=== PATIENT | male | born 1980 | race Caucasian/White ===

== ENCOUNTER 2016-07-21 04:37 | Emergency (ER) | payer MEDICAID ==
[2016-07-21 05:00] VITALS: RESP 18; O2SAT 98
--- NOTE | 2016-07-21 06:10 | C.PDOC ---
History Of Present Illness 36 year old male presents to the ED with complaints of pain in the left lower rib cage area for the past four days after accidentally being kicked while play fighting with friends. Patient notes pain is worse upon movement. He denies any other trauma or other complaints at this time. Time Seen by Provider: 07/21/16 05:26 Chief Complaint (Nursing): Back Pain History Per: Patient History/Exam Limitations: no limitations Onset/Duration Of Symptoms: Days Current Symptoms Are (Timing): Still Present Quality Of Discomfort: "Pain" Exacerbating Factor(s): Movement Past Medical History Reviewed: Historical Data, Nursing Documentation, Vital Signs Vital Signs: Last Vital Signs Temp 98.3 F 07/21/16 04:57 Pulse 100 H 07/21/16 04:57 Resp 18 07/21/16 04:57 BP 121/89 07/21/16 04:57 Pulse Ox 98 07/21/16 06:14 - Medical History PMH: Asthma - [facility] Procedures APPLICATION OF SPLINT (10/20/12) Family History: States: No Known Family Hx - Social History Hx Tobacco Use: Yes ("sometimes") Hx Alcohol Use: No Hx Substance Use: No - Immunization History Hx Tetanus Toxoid Vaccination: No Hx Influenza Vaccination: No Hx Pneumococcal Vaccination: No Review Of Systems Constitutional: Negative for: Fever, Chills, Sweats Cardiovascular: Negative for: Chest Pain Respiratory: Negative for: Shortness of Breath Gastrointestinal: Negative for: Nausea, Vomiting Musculoskeletal: Positive for: Other (left lower rib cage pain ) Physical Exam - Physical Exam Appears: Non-toxic, No Acute Distress Skin: Warm, Dry Head: Atraumatic Eye(s): bilateral: Normal Inspection, PERRL Neck: Normal ROM, Supple Chest: Symmetrical, No Deformity, Tenderness (left lower intercostal area at midaxillary line ) Cardiovascular: Rhythm Regular Respiratory: Normal Breath Sounds, No Rhonchi Gastrointestinal/Abdominal: Soft, No Distention, No Guarding, No Rebound, Other Back: No CVA Tenderness, No Vertebral Tenderness (no tenderness at thoracic or lumbar spine) Extremity: Normal ROM, No Tenderness Neurological/Psych: Oriented x3 ED Course And Treatment O2 Sat by Pulse Oximetry: 98 (room air ) - Other Rad Rib X-Ray X-Ray: Interpreted by Me, Read By Radiologist Interpretation: No fractures, no pneumothorax Progress Note: Patient was given toradol. Disposition Counseled Patient/Family Regarding: Diagnosis, Need For Followup - Disposition Disposition: HOME/ ROUTINE Disposition Time: 06:57 Condition: STABLE Additional Instructions: Please follow up with PMD Take meds as directed Return to ER if worse Prescriptions: Ibuprofen [Motrin] 600 mg PO Q6H #30 tab Instructions: Rib Contusion (ED) - Clinical Impression Clinical Impression: Rib contusion - Scribe Statement The provider has reviewed the documentation as recorded by the Scribjaclyn Jin All medical record entries made by the Mashaibjaclyn were at my direction and personally dictated by me. I have reviewed the chart and agree that the record accurately reflects my personal performance of the history, physical exam, medical decision making, and the department course for this patient. I have also personally directed, reviewed, and agree with the discharge instructions and disposition.
[2016-07-21 07:04] VITALS: BP 129/75; PULSE 115; TEMP 97.8
--- NOTE | 2016-07-21 09:00 | RAD ---
PROCEDURE: Radiographs of the Chest and Left Ribs. HISTORY: pain, trauma left lateral ribs COMPARISON: None available. TECHNIQUE: Frontal radiograph of the chest and multiple oblique radiographs of the left ribs were obtained. FINDINGS: LEFT RIBS: No acute fracture or focal lesion visualized. LUNGS: Clear. PLEURA: No pneumothorax or pleural fluid. CARDIOVASCULAR: Normal sized heart. No pulmonary vascular congestion. OTHER FINDINGS: None. IMPRESSION: No acute rib fracture. Clear lungs.
== END 2016-07-21 07:03 | disposition home or self-care (01) ==
LOC: C.ER 04:37
DX: S20.212A Contusion of left front wall of thorax, initial encounter (principal); W50.1XXA Accidental kick by another person, initial encounter; Y93.89 Activity, other specified; Y92.9 Unspecified place or not applicable
CPT/HCPCS: 71101; 96372; 99283; J1885